=== PATIENT | female | born 1970 ===

== ENCOUNTER 2017-12-10 12:57 | Emergency (ER) | payer OTHER ==
[~2017-12-10] VITALS: Ht 162.6 cm; Wt 81.6 kg
[2017-12-10] MEDS ORDERED: KETO10TA2 PO (17:10)
[2017-12-10] MEDS ORDERED: ORPHENADRINE C100 MG PO (17:10)
== END 2017-12-10 17:12 | disposition home or self-care (01) ==
LOC: ER 12:57
DX: S50.12XA Contusion of left forearm, initial encounter (principal); S80.01XA Contusion of right knee, initial encounter; W18.39XA Other fall on same level, initial encounter; Y93.89 Activity, other specified; Y92.520 Airport as the place of occurrence of the external cause; Y99.8 Other external cause status